=== PATIENT | male | born 1960 | race Caucasian/White ===

== ENCOUNTER 2021-06-06 08:24 | Outpatient (CLI) | payer OTHER, SELFPAY ==
--- NOTE | 2021-06-06 08:59 | ECHO_ITS ---
Patient Info Name: Danny Fontenot Age: 61 years : 1960 Gender: Male Ht: 71 in Wt: 235 lbs BSA: 2.34 m2 HR: 78 bpm BP: 142 / 90 mmHg Technical Quality: Fair Exam Date: 06/06/2021 9:09 AM Exam Location: [facility] Patient Status: Outpatient Admit Date: 06/06/2021 Staff Ordering Physician: Mihaela Bland MD Coal Weigher: Masha Dockery RDCS Attending Provider: Mihaela Bland MD Referring Physician: Baldo TILLEY; Exam Type: CA echo doppler color flow Study Info Indications R06.00 - DYSPNEA Complete two-dimensional, color flow and Doppler transthoracic echocardiogram is performed. Summary 1. Complete two-dimensional, color flow and Doppler transthoracic echocardiogram is performed. 2. Left ventricular chamber dimension is normal. 3. Left ventricular systolic function is normal, estimated at 60-65%. 4. The left ventricular diastolic function is grade I diastolic dysfunction. 5. E/e' 7 is not elevated. 6. Left atrial chamber dimension is mildly enlarged. 7. No pulmonary hypertension, estimated pulmonary arterial systolic pressure is 39 mmHg. 8. There is trivial pericardial effusion. Left Ventricle E/e' 7 is not elevated. Left ventricular chamber dimension is normal. Left ventricular systolic function is normal, estimated at 60-65%. The left ventricular diastolic function is grade I diastolic dysfunction. Right Ventricle Right ventricular chamber dimension is normal. Right ventricular systolic function is normal. Left Atria Left atrial chamber dimension is mildly enlarged. Right Atria Right atrial chamber dimension is normal. Aortic Valve The aortic valve is trileaflet. There is no aortic valve stenosis. There is no aortic valve regurgitation. Pulmonic Valve There is no pulmonic regurgitation. Mitral Valve There is no mitral valve stenosis. There is no mitral valve regurgitation. Tricuspid Valve There is no tricuspid valve regurgitation. No pulmonary hypertension, estimated pulmonary arterial systolic pressure is 39 mmHg. Pericardium/Pleural There is trivial pericardial effusion. Inferior Vena Cava Normal inferior vena cava with >50% collapse upon inspiration consistent with normal right atrial pressure, 5 mmHg. Aorta The aortic root size at the sinus of Valsalva is normal. Left Ventricular Outflow Tract Name Value Normal LVOT 2D LVOT Diameter 2.2 cm LVOT Doppler LVOT Peak Gradient 4 mmHg LVOT Mean Gradient 2 mmHg LVOT VTI 19 cm LVOT VTI/AV VTI Ratio 0.9 LVOT Stroke Volume 70 ml LVOT CO 14.5 l/min LVOT CI 6.2 l/min/m2 Pulmonic Valve Name Value Normal PV Doppler PV P
--- NOTE | 2021-06-06 10:16 | EST_ITS ---
Patient Info Name: Danny Fontenot Age: 61 years : 1960 Gender: Male Ht: 71 in Wt: 235 lbs BSA: 2.34 m2 Exam Date: 06/06/2021 10:39 AM Exam Location: [facility] Stress Patient Status: Outpatient Admit Date: 06/06/2021 Staff Ordering Physician: Mihaela Bland MD Attending Provider: Mihaela Bland MD Exercise Technologist: David Lorenzo RDCS, RT Exercise Physician: Victor Manuel Hidalgo DO Exam Type: CA stress test treadmill Study Info A treadmill exercise stress test was performed. Summary 1. 1. Negative Artis exercise stress test for ischemic ST changes by ECG criteria. 2. 2. Good functional capacity, achieving 10 METs of workload. 3. 3. Appropriate HR response to exercise. 4. 4. Appropriate HR recovery at 1 minute post exercise. 5. 5. No imaging with stress testing. 6. 6. Patient informed of the above results. Protocol: Artis Stress ECG Details Stage: REST Duration (min): 3 min : 11 sec Speed (mph): 0.0 Grade (%): 0 HR (bpm): 70 SBP (mmHg): 134 DBP (mmHg): 79 METS: --- Stage: REST Duration (min): 4 min : 33 sec Speed (mph): 0.0 Grade (%): 0 HR (bpm): 72 SBP (mmHg): 134 DBP (mmHg): 79 METS: --- Stage: STAGE 1 Duration (min): 1 min : 0 sec Speed (mph): 1.7 Grade (%): 10 HR (bpm): 96 SBP (mmHg): 134 DBP (mmHg): 79 METS: --- Stage: STAGE 1 Duration (min): 2 min : 0 sec Speed (mph): 1.7 Grade (%): 10 HR (bpm): 103 SBP (mmHg): 134 DBP (mmHg): 79 METS: --- Stage: STAGE 1 Duration (min): 3 min : 0 sec Speed (mph): 1.7 Grade (%): 10 HR (bpm): 106 SBP (mmHg): 166 DBP (mmHg): 72 METS: --- Stage: STAGE 2 Duration (min): 1 min : 0 sec Speed (mph): 2.5 Grade (%): 12 HR (bpm): 111 SBP (mmHg): 166 DBP (mmHg): 72 METS: --- Stage: STAGE 2 Duration (min): 2 min : 0 sec Speed (mph): 2.5 Grade (%): 12 HR (bpm): 119 SBP (mmHg): 164 DBP (mmHg): 67 METS: --- Stage: STAGE 2 Duration (min): 3 min : 0 sec Speed (mph): 2.5 Grade (%): 12 HR (bpm): 118 SBP (mmHg): 164 DBP (mmHg): 67 METS: --- Stage: STAGE 3 Duration (min): 1 min : 0 sec Speed (mph): 3.4 Grade (%): 14 HR (bpm): 129 SBP (mmHg): 167 DBP (mmHg): 68 METS: --- Stage: STAGE 3 Duration (min): 2 min : 0 sec Speed (mph): 3.4 Grade (%): 14 HR (bpm): 137 SBP (mmHg): 167 DBP (mmHg): 68 METS: --- Stage: STAGE 3 Duration (min): 2 min : 59 sec Speed (mph): 3.4 Grade (%): 14 HR (bpm): 141 SBP (mmHg): 188 DBP (mmHg): 72 METS: --- Stage: RECOVERY Duration (min): 1 min : 0 sec Speed (mph): 0.0 Grade (%): 0 HR (bpm): 123 SBP (mmHg): 188 DBP (mmHg): 72 METS: --- Stage: RECOVERY Duration (min): 2 min : 0 sec Speed (mph): 0.0 Grade (%): 0 HR (bpm):
== END 2021-06-06 08:25 | disposition home or self-care (01) ==
PROVIDERS: PCP Family Medicine; Visit Provider Family Medicine
DX: R06.00 Dyspnea, unspecified (principal); R06.89 Other abnormalities of breathing; I10 Essential (primary) hypertension; R20.0 Anesthesia of skin; Z86.16 Personal history of COVID-19
CPT/HCPCS: 93017; 93306

== ENCOUNTER 2021-06-10 14:30 | Outpatient (CLI) | payer OTHER, SELFPAY ==
--- NOTE | 2021-06-13 16:10 | WPDPFTINT ---
PFT Procedure Performed PFT Procedure Performed Spirometry with Pre/Post Bronchodilator Plethysmography (Lung Vol) Diffusing Cap (DLCO) Flow Vol Loop PFT Interpretation This is a pulmonary function test with pre and post-bronchodilator spirometry, plethysmography and diffusing capacity. The test was performed and results interpreted in accordance with the 2019 and 2005 ATS/ERS Task Force guidelines respectively using the Global Lung Function Initiative-2012 reference equations. Patient demonstrated good effort and cooperation. Reproducibility criteria were met. The quality of the pre bronchodilator spirometry maneuver was Grade A and post bronchodilator spirometry maneuver was Grade A. Findings: Spirometry: The contour the inspiratory and expiratory flow tracing are normal. The pre bronchodilator FVC is 4.12 L, 85% predicted. The pre bronchodilator FEV1 is 3.36 L, 90% predicted. The pre bronchodilator FEV1: FVC ratio was 81%. The post bronchodilator FVC is 3.67 L, representing an 11% decrease. The post bronchodilator FEV1 is 3.04 L, representing a 9% decrease. The post bronchodilator FEV1: FVC ratio was 83%. Plethysmography: The total lung capacity is 5.87 L, 82% predicted. The functional residual capacity is 2.25 L, 60% predicted. The residual volume is 1.47 L, 65% predicted. Diffusing capacity: The diffusion capacity unadjusted for hemoglobin and carboxyhemoglobin is 22.1, 76% predicted. The diffusing capacity adjusted for alveolar volume is 4.41, 105% predicted. Impression: The spirometry is normal without evidence of an obstructive abnormality. There is no significant improvement after inhaling a single dose of albuterol. The total lung capacity is normal with a decreased functional residual capacity and residual volume. This is an abnormal but nonspecific lung volume pattern. The diffusing capacity is normal. There are no prior studies for comparison
== END 2021-06-10 14:31 | disposition home or self-care (01) ==
PROVIDERS: PCP Family Medicine; Visit Provider Family Medicine
DX: R06.00 Dyspnea, unspecified (principal); I10 Essential (primary) hypertension; R06.89 Other abnormalities of breathing; R20.0 Anesthesia of skin; Z86.16 Personal history of COVID-19
CPT/HCPCS: 94060; 94726; 94729